=== PATIENT | male | born 1965 | race Caucasian/White ===

== ENCOUNTER 2020-08-02 21:58 | Emergency (ER) | payer OTHER, SELFPAY ==
[2020-08-02 22:13] VITALS: BP 126/76; PULSE 78; RESP 16; TEMP 36.1; O2SAT 97; BMI 22.1
[2020-08-02 22:27] LABS: Glucose, Whole Blood 240 mg/dL (60-115)
--- NOTE | 2020-08-02 22:31 | ED_ITS ---
HPI - Abdominal Pain General Chief Complaint: Abdominal Pain Stated Complaint: flank pain Time Seen by Provider: 08/02/20 22:22 Source: patient Mode of arrival: EMS History of Present Illness HPI narrative: This is a 54-year-old male without significant past medical history he states that he is currently passing and developed acute right-sided flank pain, squeezing in nature, radiating into the right groin without fever, chills but reports nausea and 3 episodes of nonbloody/nonbilious vomiting. Otherwise, denies any shortness of breath, chest pain, diarrhea, and no surgical history. Patient states that he received medication in the ambulance and says pain is now 4-5/10. Related Data Previous Rx's Medication Instructions Recorded ketorolac 10 mg PO TID PRN 5 Days #20 tab 08/03/20 ondansetron HCl [Zofran] 4 mg PO Q6H PRN #7 tab 08/03/20 tamsulosin [Flomax] 0.4 mg PO BEDTIME 5 Days #5 cap 08/03/20 Allergies Allergy/AdvReac Type Severity Reaction Status Date / Time No Known Allergies Allergy Verified 08/02/20 22:39 Review of Systems Review of Systems Pertinent positives and negatives as stated in HPI 10 point review of systems is otherwise negative. Physical Exam Vital Signs: Vital Signs: Last Vital Signs Temp 98.7 F 08/02/20 23:46 Pulse 81 08/02/20 23:46 Resp 16 08/02/20 23:46 BP 117/64 08/02/20 23:46 Pulse Ox 97 08/02/20 23:46 Body Mass Index 22.1 VITAL SIGNS: Reviewed. GENERAL: Well developed, well nourished, in no acute distress. OROPHARYNX: no oral lesions noted, posterior pharynx clear NECK: Supple, no adenopathy LUNGS: Normal breath sounds. No adventitious sounds or accessory muscle use. SpO2<97> CARDIOVASCULAR: Regular rate and rhythm without noted murmurs, no JVD or lower extremity edema. ABDOMEN: Soft, non-tender, non-distended with bowel sounds. NEUROLOGIC: Alert and oriented x 4. Course Course Course Narrative: This is a 54-year-old male with history and clinical presentation consistent with likely nephrolithiasis but will rule out a ppendicitis, UTI, pyelonephritis, cholecystitis. Review of all investigations and on re-evaluation findings are consistent with ureteral lithiasis and patient able to tolerate oral intake and will be discharged home in stable condition with instructions on pain control and to follow up with Dr. Isaacs in the morning. In addition, all results and findings to include mildly elevated glucose and patient endorsing no history diabetes. MDM - Abdominal Pain Lab Data Result diagrams: 08/02/20 22:52 08/02/20 22:52 Labs: Lab Results 08/02/20 08/02/20 08/02/20 Range/Units 22:24 22:52 22:52 WBC 9.6 (4.8-10.8) X10*3/uL RBC 4.52 L (4.60-5.80) X10*6/uL Hgb 14.1 (14.0-18.0) g/dl Hct 41.6 L (42-52) % MCV 92.0 (80-98) fL MCH 31.2 (27.0-33.0) pg MCHC 33.9 (31.0-36.0) g/dl RDW 11.3 (11.0-16.0) % Plt Count 151 L (160-400) X10*3/uL MPV 11.1 (9.4-12.4) fL Immature Gran % (Auto) 0.6 H (0.0-0.4) % Neut % (Auto) 86.3 H (45-73) % Lymph % (Auto) 9.6 L (20-40) % Lyon % (Auto) 3.1 (2-11) % Eos % (Auto) 0.2 (0-4) % Baso % (Auto) 0.2 (0-2) % Lymph # (Auto) 0.9 L (1.2-4.9) X10*3/uL Lyon # (Auto) 0.3 (0.1-1.2) X10*3/uL Eos # (Auto) 0.0 (0.0-0.4) X10*3/uL Baso # (Auto) 0.0 (0.0-0.2) X10*3/uL Abs Immat Gran (auto) 0.06 H (0.00-0.03) X10*3/uL Absolute Neuts (auto) 8.2 (2.0-8.3) X10*3/uL Absolute Nucleated RBC 0.000 (0.0-0.012) X10*3/uL Nucleated RBC % (auto) 0.0 (0.0-0.2) /100WBC Sodium 138 (135-145) mmol/L Potassium 4.7 (3.3-5.1) mmol/L Chloride 104 (96-108) mmol/L Carbon Dioxide 20 L (22-29) mmol/L Anion Gap 19 (12-20) BUN 19 H (9-16) mg/dL Creatinine 0.88 (0.5-1.4) mg/dL Estim Creat Clear Calc 94.4 Estimated GFR > 60 POC Glucose 240 H (60-115) mg/dL Random Glucose 286 H (60-115) mg/dL Calcium 8.6 (8.4-10.2) mg/dL Total Bilirubin 0.7 (0.0-1.0) mg/dL AST 28 (5-37) U/L ALT 44 H (0-40) U/L Alkaline Phosphatase 59 (39-117) U/L Total Protein 6.7 (6.5-8.0) g/dL Albumin 4.2 (3.5-5.0) g/dL Discharge Plan Discharge Clinical Impression: Ureterolithiasis, Blood glucose elevated Patient Disposition: Home, Self-Care Instructions: Ureteral Stones (ED), Diabetes and Nutrition (ED) Additional Instructions: KIDNEY STONE 1. Tylenol 1000 mg, orally, every 6 hours as needed for pain control. Do not exceed 4000 mg within 24 hours. 2. Increase fluid hydration especially with water. 3. Please call the urology office in the morning, the referral information is below, and you will be further evaluated for stone removal if necessary. ELEVATED SUGAR LEVEL You were noted to have an elevated sugar level that will need to be further investigated by your primary care provider. There are no other concerning symptoms at this time. Take prescribed medication as directed. You have been provided with the prescriptions. Please do not hesitate to return to the emergency department if you experience any worsening symptoms to include fever/chills that do not resolve with [id number] Tylenol or ibuprofen. Prescriptions: New tamsulosin [Flomax] 0.4 mg capsule 0.4 mg PO BEDTIME 5 Days Qty: 5 RF: 0 ondansetron HCl [Zofran] 4 mg tablet 4 mg PO Q6H PRN (Reason: nausea and vomiting) Qty: 7 RF: 0 ketorolac 10 mg tablet 10 mg PO TID PRN (Reason: pain) 5 Days Qty: 20 RF: 0 Referrals: Chi Gregg MD [Physician] - 1 day (Evaluation and management right 4mm stone) [facility] Past Medical History Source: nursing notes reviewed Medical History No known health problems Social History Social History Alcohol intake: never Smoked in Last 30 Days: No Use of substances other than those prescribed or required for medical reasons: No Advance Directives: No
[2020-08-02] MEDS: ondansetron HCL 4 MG/2 ML VIAL IVPUSH (22:50)
[2020-08-02] MEDS: 0.9 % Sodium Chloride 1,000 ML 999 ML IV (22:50)
[2020-08-02 22:57] LABS: Basophils Percent Auto 0.2 % (0-2); Eosinophils Percent Auto 0.2 % (0-4); Hematocrit 41.6 % (42-52); Hemoglobin 14.1 g/dl (14.0-18.0); Imm Gran Abs Auto 0.06 X10*3/uL (0.00-0.03); Imm Gran Pct Auto 0.6 % (0.0-0.4); Lymphocytes Absolute Auto 0.9 X10*3/uL (1.2-4.9); Lymphocytes Percent Auto 9.6 % (20-40); MANUAL DIFF FLAG NO; Mean Corpuscular HGB Conc 33.9 g/dl (31.0-36.0); Mean Corpuscular Hemoglobin 31.2 pg (27.0-33.0); Mean Platelet Volume 11.1 fL (9.4-12.4); Monocytes Absolute Auto 0.3 X10*3/uL (0.1-1.2); Monocytes Percent Auto 3.1 % (2-11); Neutrophils Absolute Auto 8.2 X10*3/uL (2.0-8.3); Neutrophils Percent Auto 86.3 % (45-73); Platelet Count 151 X10*3/uL (160-400); Red Blood Count 4.52 X10*6/uL (4.60-5.80); Red Cell Distribution Width 11.3 % (11.0-16.0); White Blood Count 9.6 X10*3/uL (4.8-10.8)
[2020-08-02 23:29] LABS: Alanine Aminotransferase 44 U/L (0-40); Albumin Level 4.2 g/dL (3.5-5.0); Alkaline Phosphatase 59 U/L (39-117); Anion Gap 19 (12-20); Aspartate Amino Transferase 28 U/L (5-37); Bilirubin Total 0.7 mg/dL (0.0-1.0); Blood Urea Nitrogen 19 mg/dL (9-16); Calcium 8.6 mg/dL (8.4-10.2); Carbon Dioxide 20 mmol/L (22-29); Chloride 104 mmol/L (96-108); Creatinine Clr Calc Pharmacy 94.4; Estimated Glomerular Filt Rate > 60; Glucose Random 286 mg/dL (60-115); Potassium 4.7 mmol/L (3.3-5.1); Sodium 138 mmol/L (135-145); Total Protein 6.7 g/dL (6.5-8.0)
[2020-08-02 23:46] VITALS: BP 117/64; PULSE 81; RESP 16; TEMP 37.1; O2SAT 97
--- NOTE | 2020-08-03 | CT_ITS ---
EXAMINATION: CT ABDOMEN AND PELVIS WITH CONTRAST CLINICAL INFORMATION: Right flank pain. COMPARISON: None. TECHNIQUE: Contiguous axial thin section helical images of the abdomen and pelvis were performed following the administration of 85 mL of intravenous Omnipaque 350. The data set was reformatted in the coronal and sagittal planes and reviewed on an independent workstation. DLP: 517 mGy-cm. FINDINGS: There is mild dependent bibasilar atelectasis. The visualized lung bases are otherwise clear. The visualized portions of the heart are unremarkable. The liver is of normal size and attenuation without focal lesions nor intrahepatic biliary ductal dilation. A normal gallbladder is identified. There is no wall thickening or discernible pericholecystic fluid. The spleen, pancreas, adrenal glands are unremarkable. Both kidneys are of normal size and attenuation. Following the administration of IV contrast, there is a slightly delayed nephrogram on the right. There is a duplicated collecting system on the right. There is right grade 2 moiety hydroureteronephrosis secondary to a 4 mm obstructive proximal to mid right ureteral calculus. There is mild right perinephric stranding. There is no abdominal free fluid. There is neither mesenteric nor retroperitoneal lymphadenopathy. Normal unopacified loops of small and large bowel are identified. There is no pelvic free fluid. The urinary bladder is unremarkable. There is neither pelvic nor inguinal lymphadenopathy. Bone windows: Neither sclerotic nor lytic bone lesions are identified. CT/CT abdomen pelvis w con IMPRESSION: Right grade 2 hydroureteronephrosis secondary to a 4 mm obstructive right proximal to mid ureteral calculus. Automated exposure control (Care Dose) Adjustment of the mA and/or kv according to patient size (this includes techniques or standardized protocols for targeted exams where dose is matched to indication / reason for exam; i.e. extremities or head).
[2020-08-03] MEDS: Ketorolac Tromethamine 15 MG/ML VIAL IVPUSH (00:36)
[2020-08-03] MEDS: iohexoL 350 MG/ML 100 ML INFUS..BTL 85 ML IV (00:36)
--- NOTE | 2020-08-03 00:56 | PC.NURSE ---
REPORT GIVEN TO ROSS CHOE WHO WILL RESUME PT CARE.
[2020-08-03] MEDS: Tamsulosin HCL 0.4 MG CAPSULE PO (01:18)
== END 2020-08-03 03:03 | disposition home or self-care (01) ==
PROVIDERS: Emergency Provider Student in an Organized Health Care Education/Training Program
DX: N13.2 Hydronephrosis with renal and ureteral calculous obstruction (principal); R73.9 Hyperglycemia, unspecified
CPT/HCPCS: 36415; 74177; 80053; 82947; 85025; 96361; 96374; 96375; 99284; J1885; J2405; Q9967

== ENCOUNTER → 2020-08-06 13:03 | Outpatient (BNVA) | payer OTHER, SELFPAY | PROVIDERS: Visit Provider Urology | DX: N13.2 Hydronephrosis with renal and ureteral calculous obstruction (principal) | CPT/HCPCS: 99202 ==

== ENCOUNTER 2020-08-23 15:09 | Outpatient (REF) | payer OTHER, SELFPAY ==
--- NOTE | ~2020-08-23 | US_ITS ---
EXAMINATION: US RETROPERITONEAL LIMITED (RENAL ONLY) CLINICAL INFORMATION: Calculus of kidney. COMPARISON: CT abdomen pelvis 08/03/2020. TECHNIQUE: Real-time imaging of the kidneys. FINDINGS: RIGHT KIDNEY: 12.2 x 5.1 x 6.0 cm (SAG x AP x TRV). The kidney is normal in size, contour, and echogenicity. Renal cortical thickness is normal. No focal parenchymal lesions or hydronephrosis. There is a 3 mm nonobstructing right upper pole calculus. LEFT KIDNEY: 12.0 x 5.6 x 5.4 cm (SAG x AP x TRV). The kidney is normal in size, contour, and echogenicity. Renal cortical thickness is normal. No focal parenchymal lesions or hydronephrosis. 3 mm echogenic foci in the upper and lower pole are consistent with nonobstructing calculi. Mild fullness of the renal collecting system but no calyceal dilation. US/US renal BI IMPRESSION: 3 mm bilateral renal calculi. There is mild fullness of the left renal collecting system that is new from the prior study. The right hydronephrosis seen on the prior CT scan has resolved.
== END 2020-08-23 15:10 | disposition home or self-care (01) ==
LOC: HO.HMGCX 15:09
PROVIDERS: Visit Provider Urology
DX: N20.0 Calculus of kidney (principal)
CPT/HCPCS: 76775

== ENCOUNTER → 2020-08-25 15:20 | Outpatient (BNVA) | payer OTHER, SELFPAY | PROVIDERS: Visit Provider Urology | DX: N13.2 Hydronephrosis with renal and ureteral calculous obstruction (principal) | CPT/HCPCS: 99212 ==

== ENCOUNTER → 2020-10-14 15:51 | Outpatient (BNVA) | payer OTHER, SELFPAY | PROVIDERS: Visit Provider Urology | DX: N20.0 Calculus of kidney (principal); N40.1 Benign prostatic hyperplasia with lower urinary tract symptoms; N13.8 Other obstructive and reflux uropathy; R35.1 Nocturia | CPT/HCPCS: 99212 ==

== ENCOUNTER 2021-04-20 15:41 | Outpatient (REF) | payer OTHER, SELFPAY ==
--- NOTE | ~2021-04-20 | XR_ITS ---
EXAMINATION: XR TEMPOROMANDIBULAR JOINT, BILATERAL CLINICAL INFORMATION: TMJ syndrome COMPARISON: None TECHNIQUE: Gabriel's view as well as open and closed mouth views bilaterally of the temporomandibular joints. FINDINGS: No fracture. Appropriate alignment of the temporomandibular joints with normal positioning of the mandibular heads in the temporal fossa. There is no significant change in positioning of the mandibular heads between the open and closed mouth views. XR/XR TMJ BI IMPRESSION: No significant change in positioning of the mandibular heads on the open and closed mouth views.
== END 2021-04-20 15:42 | disposition home or self-care (01) ==
LOC: HO.XRAY 15:41
PROVIDERS: Visit Provider Psychiatry & Neurology Neurology
DX: M26.69 Other specified disorders of temporomandibular joint (principal)
CPT/HCPCS: 70330

== ENCOUNTER → 2021-07-05 15:26 | Outpatient (BNVA) | payer OTHER, SELFPAY | PROVIDERS: Visit Provider Urology | DX: N40.1 Benign prostatic hyperplasia with lower urinary tract symptoms (principal); N13.8 Other obstructive and reflux uropathy; N20.0 Calculus of kidney | CPT/HCPCS: 99212 ==

== ENCOUNTER 2022-06-23 15:45 | Outpatient (REF) | payer OTHER, SELFPAY ==
--- NOTE | ~2022-06-23 | US_ITS ---
EXAMINATION: US RETROPERITONEAL LIMITED (RENAL ONLY) CLINICAL INFORMATION: Calculus of kidney. COMPARISON: Renal ultrasound 08/23/2020. CT abdomen and pelvis 08/03/2020. TECHNIQUE: Real-time imaging of the kidneys. FINDINGS: RIGHT KIDNEY: 11.9 x 6.9 x 4.7 cm (SAG x AP x TRV). The kidney is normal in size, contour, and echogenicity. Renal cortical thickness is normal. Punctate 3 mm echogenic nonobstructing calculus is present. No focal parenchymal lesions or hydronephrosis. LEFT KIDNEY: 11.4 x 5.8 x 4.8 cm (SAG x AP x TRV). The kidney is normal in size, contour, and echogenicity. Renal cortical thickness is normal. Punctate 2 mm nonobstructing calculus is present. No focal parenchymal lesions or hydronephrosis. US/US renal BI IMPRESSION: Bilateral punctate nonobstructing renal calculi. Similar findings were present on prior studies.
== END 2022-06-23 15:46 | disposition home or self-care (01) ==
LOC: HO.HMGCX 15:45
PROVIDERS: PCP Internal Medicine; Visit Provider Urology
DX: N20.0 Calculus of kidney (principal)
CPT/HCPCS: 76775

== ENCOUNTER → 2022-07-04 15:47 | Outpatient (BNVA) | payer OTHER, SELFPAY | PROVIDERS: PCP Internal Medicine; Visit Provider Urology | DX: N13.2 Hydronephrosis with renal and ureteral calculous obstruction (principal); R35.1 Nocturia; N40.1 Benign prostatic hyperplasia with lower urinary tract symptoms; N13.8 Other obstructive and reflux uropathy; Z79.899 Other long term (current) drug therapy | CPT/HCPCS: 99212 ==

== ENCOUNTER 2023-06-20 14:56 | Outpatient (REF) | payer OTHER, SELFPAY ==
--- NOTE | ~2023-06-20 | US_ITS ---
EXAMINATION: US RETROPERITONEAL LIMITED (RENAL ONLY) CLINICAL INFORMATION: Hydronephrosis with renal and ureteral calculus obstruction. COMPARISON: Renal ultrasound 06/23/2022 and 08/23/2020. CT abdomen and pelvis with contrast 08/03/2020. TECHNIQUE: Real-time imaging of the kidneys. FINDINGS: RIGHT KIDNEY: 12.4 x 4.7 x 6.1 cm (SAG x AP x TRV). The kidney is normal in size, contour, and echogenicity. Renal cortical thickness is normal. No focal parenchymal lesions or hydronephrosis. 0.2 x 0.3 x 0.3 cm nonobstructing calculus is seen in the upper pole LEFT KIDNEY: 12.0 x 6.2 x 6.0 cm (SAG x AP x TRV). The kidney is normal in size, contour, and echogenicity. Renal cortical thickness is normal. No focal parenchymal lesions. There is mild hydronephrosis. 0.3 x 0.3 x 0.3 cm and 0.3 x 0.2 x 0.3 cm lower pole nonobstructing calculi are seen. US/US renal BI IMPRESSION: 1. Bilateral small nonobstructing renal calculi. 2. Mild left hydronephrosis.
== END 2023-06-20 14:57 | disposition home or self-care (01) ==
LOC: HO.HMGCX 14:56
PROVIDERS: PCP Internal Medicine; Visit Provider Urology
DX: N13.2 Hydronephrosis with renal and ureteral calculous obstruction (principal)
CPT/HCPCS: 76775

== ENCOUNTER 2023-07-04 15:30 | Outpatient (AMB) | payer OTHER, SELFPAY ==
--- NOTE | 2023-07-04 15:42 | MHC.OFFVIS ---
Intake Intake Visit Reasons: 1Y US(set) Intake Note: Patient is Present for Follow Up US Urology Medication:Vitamin B6 Antibiotic Allergies: None Blood Thinners: None Allergies No Known Allergies Allergy (Verified 07/04/23 15:49) Medication List - Last Reconciled 07/04/23 by Chi Gregg MD ketorolac 10 mg PO TID PRN 5 days pyridoxine (vitamin B6) 50 mg PO DAILY 90 days HPI HPI Comments History of Present Illness Details Bryan this very pleasant male. He is a patient of Dr. Hughes. He is seen for the following urologic conditions - lower urinary tract symptoms - nephrolithiasis Discussed ultrasound results Punctate stones Encourage increased fluid intake - he drinks too much coffee - 2.5 L Keep on vitamin B6 50 mg Stat allopurinol Lower urinary tract symptoms Prior symptoms with nocturia Had improvement with Flomax Had decided not to maintain therapy Nephrolithiasis They are here for - further evaluation for nephrolithiasis Urolithiasis was diagnosed -2020 The patient previously had kidney stones whose composition w - unknown Laboratory investigations include -08/22 calcium 8.6 24 Hour urine evaluation - none on file Prior treatment(s) include - observation - medical expulsion Prior imaging includes - 08/22 CT scan 4 mm proximal right ureteric stone with grade 2 hydronephrosis - 08/22 ultrasound with resolution of right grade 2 hydronephrosis - 06/22 renal ultrasound bilateral punctate stones - 06/23 renal ultrasound bilateral small stones 2 mm Current therapeutic plan will be - 12 month surveillance with imaging [facility] Medical History (Updated 07/04/22 @ 16:13 by Chi Gregg MD) Ureteral stone with hydronephrosis No known health problems Social History Alcohol intake: never Review of Systems Const Denies chills and Denies fever(s) Card Reports no additional complaints and Denies syncope Resp Denies cough GI Denies abdominal pain and Denies heartburn Reports as per HPI and Denies change in libido Neuro Denies syncope Psych Denies change in libido Endo Denies change in libido Physical Exam Const General: cooperative, healthy appearing, comfortable and no acute distress Orientation/consciousness: patient oriented x3 HEENT Face and sinus: Yes normal facial exam Mouth: moist mucous membranes Neck Neck: Yes normal visual inspection, Yes full ROM and Yes trachea midline Chest Chest palpation & inspection: normal inspection of the chest Resp Effort & Inspection: normal respiratory effort, able to speak in complete sentences and no respiratory distress GI Inspection: Yes normal to inspection Back/Spine/Pelvis Cervical Spine: normal cervical lordosis Thoracic/Lumbar Spine: thoracic and lumbar spine normal to inspection Skin General skin exam: no rashes or lesions noted Neuro General: patient oriented x3, gait normal, tone normal and moves all extremities Extrem General: Yes normal to inspection and Yes capillary refill normal Assessment & Plan Assessment & Plan (1) BPH w urinary obs/LUTS: Code(s): N40.1 - Benign prostatic hyperplasia with lower urinary tract symptoms; N13.8 - Other obstructive and reflux uropathy (2) Nephrolithiasis: Code(s): N20.0 - Calculus of kidney Plan And allopurinol Six month follow-up imaging Orders: Orders US renal BI 6 Months N20.0 - Calculus of kidney Medications: New allopurinol 100 mg PO DAILY 90 days 90 tabs 1RF N20.0 - Calculus of kidney Patient Instructions: Imaging studies, laboratory and physical exam results were discussed and reviewed in detail. No major barriers to patient understanding were identified. An opportunity to ask questions regarding the treatment plan was provided. All questions were answered. The patient expressed understanding and agreement with the above treatment plan. The patient is aware they should contact our office by phone for worsening of their current condition or the appearance of new urologic symptoms. Compliance is encouraged with any medications and followup testing that is ordered. It is a privilege to participate in the urologic care of your patient. If you have any questions or concerns regarding treatment for the above conditions, or other urologic issues, please do not hesitate to contact me. The office telephone contact is [phone]. This note is constructed using voice recognition software. While every effort has been made to ensure accuracy butt presser errors may have been included. Yours sincerely, Dr Chi Gregg MD, [facility] - Urology Providers of Expert, Compassionate Care for the Genitourinary System Coding Level of Care Code Est Pt Level 4 (29194) Diagnoses BPH w urinary obs/LUTS N40.1; N13.8 Nephrolithiasis N20.0
== END 2023-07-04 16:29 | disposition home or self-care (01) ==
PROVIDERS: Visit Provider Urology
DX: N40.1 Benign prostatic hyperplasia with lower urinary tract symptoms (principal); N13.8 Other obstructive and reflux uropathy; N20.0 Calculus of kidney
CPT/HCPCS: 99214

== ENCOUNTER → 2023-07-04 15:30 | Outpatient (BNVA) | payer OTHER, SELFPAY | PROVIDERS: Visit Provider Urology | DX: N40.1 Benign prostatic hyperplasia with lower urinary tract symptoms (principal); N13.8 Other obstructive and reflux uropathy; N20.0 Calculus of kidney | CPT/HCPCS: 99212 ==

== ENCOUNTER 2024-01-18 15:25 | Outpatient (REF) | payer OTHER, SELFPAY ==
--- NOTE | ~2024-01-18 | US_ITS ---
EXAMINATION: US RETROPERITONEAL LIMITED (RENAL ONLY) CLINICAL INFORMATION: Calculus of kidney. COMPARISON: Renal ultrasound 06/20/2023 and 06/23/2022. CT abdomen and pelvis 08/03/2020. TECHNIQUE: Real-time imaging of the kidneys. FINDINGS: RIGHT KIDNEY: 12.4 x 4.5 x 6.2 cm (SAG x AP x TRV). The kidney is normal in size, contour, and echogenicity. Renal cortical thickness is normal. No calculi or focal parenchymal lesions. No hydronephrosis. LEFT KIDNEY: 11.5 x 5.5 x 6.1 cm (SAG x AP x TRV). The kidney is normal in size, contour, and echogenicity. Renal cortical thickness is normal. 3 lower pole nonobstructing calculi are present ranging in size from 3 to 4 mm, similar to prior. No focal parenchymal lesions or hydronephrosis. Mild left-sided hydronephrosis seen previously is not present on the current study. ADDITIONAL FINDINGS: Incidental note made of an echogenic liver consistent with hepatic steatosis. US/US renal BI IMPRESSION: 1. Nonobstructing left lower pole renal calculi. 2. Incidentally noted hepatic steatosis.
== END 2024-01-18 15:26 | disposition home or self-care (01) ==
LOC: HO.HMGCX 15:25
PROVIDERS: PCP Internal Medicine; Visit Provider Urology
DX: N20.0 Calculus of kidney (principal)
CPT/HCPCS: 76775

== ENCOUNTER 2024-03-07 15:29 | Outpatient (AMB) | payer OTHER, SELFPAY ==
--- NOTE | 2024-03-07 15:56 | A.OFFVIS_ITS ---
Intake Visit Reasons: Follow up/U/S Intake Note: Patient is Present for Follow Up Ultrasound Urology Medication: Vitamin B6 Antibiotic Allergies: None Blood Thinners: None Remote Computer Terminal Operator Required: No Accompanied by: Self / Same As Patient Allergies No Known Allergies Allergy (Verified 07/04/23 15:49) HPI Comments Details: Bryan this very pleasant male. He is a patient of Dr. Hughes. He is seen for the following urologic conditions - lower urinary tract symptoms - nephrolithiasis Six-month follow-up on vitamin B6 and allopurinol Imaging reviewed Yearly follow-up Lower urinary tract symptoms Prior symptoms with nocturia Had improvement with Flomax Had decided not to maintain therapy Nephrolithiasis They are here for - further evaluation for nephrolithiasis Urolithiasis was diagnosed -2020 The patient previously had kidney stones whose composition w - unknown Laboratory investigations include -08/22 calcium 8.6 24 Hour urine evaluation - none on file Prior treatment(s) include - observation - medical expulsion Prior imaging includes - 08/22 CT scan 4 mm proximal right ureteric stone with grade 2 hydronephrosis - 08/22 ultrasound with resolution of right grade 2 hydronephrosis - 06/22 renal ultrasound bilateral punctate stones - 06/23 renal ultrasound bilateral small stones 2 mm - 01/22 renal ultrasound small stone left side Current therapeutic plan will be - 12 month surveillance with imaging [facility] Medical History Ureteral stone with hydronephrosis No known health problems Social History Alcohol intake: never Review of Systems Const Denies chills and Denies fever(s) Card Reports no additional complaints and Denies syncope Resp Denies cough GI Denies abdominal pain and Denies heartburn Reports as per HPI and Denies change in libido Neuro Denies syncope Psych Denies change in libido Endo Denies change in libido Physical Exam Const General: cooperative, healthy appearing, comfortable and no acute distress Orientation/consciousness: patient oriented x3 HEENT Face and sinus: Yes normal facial exam Mouth: moist mucous membranes Neck Neck: Yes normal visual inspection, Yes full ROM and Yes trachea midline Chest Chest palpation & inspection: normal inspection of the chest Resp Effort & Inspection: normal respiratory effort, able to speak in complete sentences and no respiratory distress GI Inspection: Yes normal to inspection Back/Spine/Pelvis Cervical Spine: normal cervical lordosis Thoracic/Lumbar Spine: thoracic and lumbar spine normal to inspection Skin General skin exam: no rashes or lesions noted Neuro General: patient oriented x3, gait normal, tone normal and moves all extremities Extrem General: Yes normal to inspection and Yes capillary refill normal Assessment & Plan Assessment & Plan (1) Nephrolithiasis: Code(s): N20.0 - Calculus of kidney Category: Medical Plan Twelve month follow-up curvature Orders: Orders US renal BI 12 Months N40.1 - Benign prostatic hyperplasia with lower urinary tract symptoms, N13.8 - Other obstructive and reflux uropathy Patient Instructions: \Imaging studies, laboratory and physical exam results were discussed and reviewed in detail. No major barriers to patient understanding were identified. An opportunity to ask questions regarding the treatment plan was provided. All q uestions were answered. The patient expressed understanding and agreement with the above treatment plan. The patient is aware they should contact our office by phone for worsening of their current condition or the appearance of new urologic symptoms. Compliance is encouraged with any medications and followup testing that is ordered. It is a privilege to participate in the urologic care of your patient. If you have any questions or concerns regarding treatment for the above conditions, or other urologic issues, please do not hesitate to contact me. The office telephone contact is [phone]. This note is constructed using voice recognition software. While every effort has been made to ensure accuracy high wire artist errors may have been included. Yours sincerely, Dr Chi Gregg MD, [facility] - Urology Providers of Expert, Compassionate Care for the Genitourinary System Coding Level of Care Code Est Pt Level 3 (90898) Diagnoses Nephrolithiasis N20.0
== END 2024-03-07 16:17 | disposition home or self-care (01) ==
PROVIDERS: PCP Internal Medicine; Visit Provider Urology
DX: N20.0 Calculus of kidney (principal)
CPT/HCPCS: 99213

== ENCOUNTER → 2024-03-07 15:29 | Outpatient (BNVA) | payer OTHER, SELFPAY | PROVIDERS: PCP Internal Medicine; Visit Provider Urology | DX: N20.0 Calculus of kidney (principal) | CPT/HCPCS: 99212 ==

== ENCOUNTER 2025-04-15 11:24 | Outpatient (REF) | payer OTHER, SELFPAY ==
--- NOTE | ~2025-04-15 | US_ITS ---
CLINICAL HISTORY: N40.1 - Benign prostatic hyperplasia with lower urinary tract symptoms US renal with Color Doppler Comparison: US/SR - US KIDNEY BILATERAL - 01/18/24 15:32 EDT US/[place]/SR - US KIDNEY BILATERAL - 06/20/23 15:36 EST US/SR - US KIDNEY BILATERAL - 06/23/22 15:53 EST Findings: Right kidney normal size and echotexture, 12.1 cm length. No nephrolithiasis. No hydronephrosis. Normal color flow. Renal cortical cyst upper pole with internal echoes measuring 1.5 x 1.4 x 1.6 cm Left kidney normal size and echotexture, 11.3 cm length. No hydronephrosis or mass. Normal color flow. Nonobstructing caliceal stone lower pole measuring 5 x 2 x 2 mm previously measuring 4 x 3 x 3 mm. Impression: 1. Kidneys normal-size and position with normal cortical width and echotexture. Renal cortical cyst upper pole on the right with internal echoes not demonstrated on previous studies can be correlated with contrast-enhanced CT or MRI. Nephrolithiasis on the left. No evidence of obstructive uropathy. This document has been electronically signed by: Gregorio Padgett MD on 04/16/2025 15:31:06
== END 2025-04-15 11:25 | disposition home or self-care (01) ==
LOC: HO.HMGCX 11:24
PROVIDERS: PCP Internal Medicine; Visit Provider Urology
DX: N40.1 Benign prostatic hyperplasia with lower urinary tract symptoms (principal); N13.8 Other obstructive and reflux uropathy
CPT/HCPCS: 76775

== ENCOUNTER → 2025-04-15 11:28 | Outpatient (BNV) | payer OTHER, SELFPAY | PROVIDERS: PCP Internal Medicine; Visit Provider Radiology Diagnostic Radiology | DX: N20.0 Calculus of kidney (principal) | CPT/HCPCS: 76775 ==

== ENCOUNTER 2025-05-01 14:57 | Outpatient (AMB) | payer OTHER, SELFPAY ==
--- NOTE | 2025-05-01 15:20 | A.OFFVIS_ITS ---
Intake Visit Reasons: 1y/US Intake Note: Patient is present for Ultrasound follow up Urology Med: Allopurinol, Vitamin B6 Antibiotic Allergy: None Blood Thinners: None Accompanied by: Self / Same As Patient Allergies No Known Allergies Allergy (Verified 05/01/25 15:22) HPI Comments Details: Bryan this very pleasant male. He is a patient of Dr. Hughes. He is seen for the following urologic conditions - lower urinary tract symptoms - nephrolithiasis Twelve month follow-up Did have pain on left side about a month ago Ultrasound consistent with small stone left side 5 mm He is interested in ESWL We will schedule Lower urinary tract symptoms Prior symptoms with nocturia Had improvement with Flomax Had decided not to maintain therapy Nephrolithiasis They are here for - further evaluation for nephrolithiasis Urolithiasis was diagnosed -2020 The patient previously had kidney stones whose composition w - unknown Laboratory investigations include -08/22 calcium 8.6 24 Hour urine evaluation - none on file Prior treatment(s) include - observation - medical expulsion Prior imaging includes - 08/22 CT scan 4 mm proximal right ureteric stone with grade 2 hydronephrosis - 08/22 ultrasound with resolution of right grade 2 hydronephrosis - 06/22 renal ultrasound bilateral punctate stones - 06/23 renal ultrasound bilateral small stones 2 mm - 01/22 renal ultrasound small stone left side - 04/25 small stone left side Current therapeutic plan will be - 12 month surveillance with imaging [facility] Medical History Ureteral stone with hydronephrosis No known health problems Social History Alcohol intake: never Review of Systems Const Denies chills and Denies fever(s) Card Reports no additional complaints and Denies syncope Resp Denies cough GI Denies abdominal pain and Denies heartburn Reports as per HPI and Denies change in libido Neuro Denies syncope Psych Denies change in libido Endo Denies change in libido Physical Exam Const General: cooperative, healthy appearing, comfortable and no acute distress Orientation/consciousness: patient oriented x3 HEENT Face and sinus: Yes normal facial exam Mouth: moist mucous membranes Neck Neck: Yes normal visual inspection, Yes full ROM and Yes trachea midline Chest Chest palpation & inspection: normal inspection of the chest Resp Effort & Inspection: normal respiratory effort, able to speak in complete sentences and no respiratory distress GI Inspection: Yes normal to inspection Back/Spine/Pelvis Cervical Spine: normal cervical lordosis Thoracic/Lumbar Spine: thoracic and lumbar spine normal to inspection Skin General skin exam: no rashes or lesions noted Neuro General: patient oriented x3, gait normal, tone normal and moves all extremities Extrem General: Yes normal to inspection and Yes capillary refill normal Assessment & Plan Assessment & Plan (1) Nephrolithiasis: Code(s): N20.0 - Calculus of kidney Category: Medical (2) BPH w urinary obs/LUTS: Code(s): N40.1 - Benign prostatic hyperplasia with lower urinary tract symptoms; N13.8 - Other obstructive and reflux uropathy Category: Medical Plan Extracorporeal Shock Wave Lithotripsy We discussed the nature of the decision and reasonable alternatives for performing the above surgery. Interventions include chemical dissolution, ESWL, ureteroscopy with laser lithotripsy and stent placement, PCNL. Options such as medical therapy were discussed. The relative uncertainties and benefits related to each alternate procedure were adequately discussed. General surgical risks including, but not limited to, pain, bleeding, infection, myocardial infarction, pulmonary embolus, deep vein thrombosis and cerebrovascular accident which may result in further hospitalization were discussed. Full disclosure of the procedure as well as all major risks, benefits and complications were discussed including but not limited to risks of bleeding, injury to the kidney with hematoma or radha-hematoma, failure to fragments stone, potential for ureteric obstruction from stone passage and need for secondary procedures. There is a small long-term risk of hypertension and a question cammie of diabetes. Success rate of fragmentation and passage is approximately 70- 75%. This is compared to the risks and benefits for ureteroscopy which has a higher success rate but is a more invasive procedure. The success rate of the procedure was discussed. Success of the procedure in the short-term does not necessarily guarantee that long-term success will be maintained. Suitable follow up will need to be maintained. The patient showed understanding of the discussion as well as the typical recovery time, and the outpatient nature of this procedure. Opportunity was given for questions. Repeat-back protocol used to confirm understanding. They wish to proceed with left ESWL Patient Instructions: This note is constructed using voice recognition software. While every effort has been made to ensure accuracy floral associate errors may have been included. Imaging studies, laboratory and physical exam results were discussed and reviewed in detail. No major barriers to patient understanding were identified. An opportunity to ask questions regarding the treatment plan was provided. All questions were answered. The patient expressed understanding and agreement with the above treatment plan. The patient is aware they should contact our office by phone for worsening of their current condition or the appearance of new urologic symptoms. Compliance is encouraged with any medications and followup testing that is ordered. It is a privilege to participate in the urologic care of your patient. If you have any questions or concerns regarding treatment for the above conditions, or other urologic issues, please do not hesitate to contact me. The office telephone contact is [phone]. Sincerely, Dr Chi Gregg MD, [facility] - Urology Compassionate Specialist Care for the Genitourinary System Coding Level of Care Code Est Pt Level 4 (18402) Diagnoses Nephrolithiasis N20.0 BPH w urinary obs/LUTS N40.1; N13.8
--- OUTSIDE RECORDS SUMMARY | 2025-05-01 15:21 | XMS_ITS | Clinical Summary ---
Author Organization [facility] [address] [place] [address] [place] [phone] Phone Care Team Providers Care Creative Technologist Name Role Phone Omkar Curtis MD Primary Care Provider Allergies No known active allergies Medications pyridoxine (B-6) 50 mg tablet Take 1 tablet (50 mg total) by mouth 1 (one) time each day. 3 Active FREESTYLE LANCETS MISC Use once daily to check blood sugar 3 Active blood-glucose meter kit 1 Device by Not Applicable route. 3 Active FreeStyle Lancets 28 gauge lancets USE ONCE DAILY TO CHECK BLOOD SUGAR 100 each 1 5 Active sodium chloride (OCEAN) 0.65 % nasal spray Administer 1 spray into each nostril if needed for congestion. 15 mL 3 5 09/27/19 26 Active diclofenac (VOLTAREN) 1 % topical gel Apply 2 g topically 2 (two) times a day. 60 g 1 5 Active blood sugar diagnostic (FreeStyle Lite Strips) test strip USE TO CHECK BLOOD SUGAR ONCE DAILY BEFORE BREAKFAST 100 strip 1 5 Active sildenafiL (VIAGRA) 50 mg tablet TAKE 1 TABLET (50 MG TOTAL) BY MOUTH IF NEEDED FOR ERECTILE DYSFUNCTION. 30 tablet 3 5 Active fluticasone propionate (FLONASE) 50 mcg/actuation nasal spray SPRAY 2 SPRAYS INTO EACH NOSTRIL EVERY DAY SHAKE GENTLY. CLEAN TIP AND REPLACE CAP AFTER USE. 48 mL 5 Active cholecalciferol (VITAMIN D-3) 50 mcg (2,000 unit) tablet TAKE 1 TABLET BY MOUTH EVERY DAY 90 tablet 3 5 Active metFORMIN (GLUCOPHAGE) 500 mg tablet Take 1 tablet (500 mg total) by mouth 1 (one) time each day with breakfast. 90 tablet 1 5 Active Active Problems Problem Noted Date Diagnosed Date Erectile dysfunction 01/06/2025 Incidental finding of low blood pressure 024 Spasm of eye muscle, right 09/05/2023 Bilateral hearing loss 12/05/2022 Memory loss 12/05/2022 Controlled type 2 diabetes m panda without complication, without long-term current use of insulin ([facility] V24, [facility] V28) 08/17/2021 Assessment & Plan (07/22/2024 5:02 PM EST): Patient is to continue metformin 500 mg daily. We do long discussion about the importance of taking medication as prescribed. We also discussed not stopping his medication and only his provider should discontinue. I also discussed sick day management with the patient. Which could explain the increase in his blood sugars. Please maintain a low carb diet to optimize blood sugar levels (avoid sweet drinks/snacks, excess bread, pasta intake and replace red meat with chicken and fish and increase salad intake). Attempt exercise daily or at least 3 times a week for 30 min. Complications associated with uncontrolled diabetes includes, but are not limited to an increased risk of cardiovascular disease, retinopathy, neuropathy, renal disease, increased risk of infections with open wounds and amputations. Orders: POC glucose manually resulted Hyperlipidemia 05/22/2012 Low back pain 05/22/2012 Overview (04/13/2024): Dr. Putnam - 03/14/10 - left L4-5 microlumbar discectomy Encounters Date Type Department Care Team Description 04/22/2025 Telephone Adult Medicine [address] [id number] Gaby Richmond MA from Last 3 Months Immunizations Immunization Administration Dates Next Due Influenza trivalent, 0.5mL, preservative free (Fluarix; FluLaval; Fluzone) ages 6mo and older (Afluria) 3 years and older 06/30/2014 Influenza trivalent, with pr eservative (Fluzone; Afluria) 6mo and older 03/02/2012 Tdap Tetanus diptheria acell ular pertussis (Boostrix; Adacel) 7yo and older 05/22/2012 Surgical History Surgery Date Site/Laterality Comments OTHER SURGICAL HISTORY 03/11 PROCEDURE: ---- OTHER ----; COMMENT: Dr. Putnam, L4-5 surgery OTHER SURGICAL HISTORY PROCEDURE: ---- OTHER ----; COMMENT: Nose surgery COLONOSCOPY 01/23/2018 PROCEDURE: HISTORICAL COLONOSCOPY; COMMENT: normal Medical History Medical History Date Comments Hyperlipidemia 05/22/2012 DX:Hyperlipidemi a Low back pain 05/22/2012 DX:Low back pain Prediabetes 07/05/2019 DX:Prediabetes Controlled type 2 diabetes m ellitus without complication, without long-term current use of insulin ([facility] V24, [facility] V28) 08/17/2021 DX:Controlled type 2 diabete s mellitus without complication, without long-term current use of insulin ([facility]) Family History Medical History Relation Name Comments No Known Problems Aunt Diabetes Brother 1 Diabetes Brother 2 Other: Unknown metabolic syndrome Daughter Coronary artery disease Father Diabetes Father Hypertension Father No Known Problems Maternal Grandfather No Known Problems Maternal Grandmother Arthritis Mother Diabetes Mother No Known Problems Other No Known Problems Paternal Grandfather No Known Problems Paternal Grandmother No Known Problems Sister 1 No Known Problems Sister 2 Other: Unknown metabolic syndrome Son No Known Problems Uncle Blindness Neg Hx Cataracts Neg Hx Glaucoma Neg Hx Macular degeneration Neg Hx Strabismus Neg Hx Relation Name Status Comments Aunt Brother 1 Alive DM Brother 2 Alive DM Daughter Alive Starting with s imilar symptoms compared to his son Father HTN, CAD (age e darien 60's) Maternal Grandfather Maternal Grandmother Mother Alive DM, joint probl ems Other Paternal Grandfather Paternal Grandmother Sister 1 Alive Healthy Sister 2 Alive Healthy Son Alive Feeding tube, u nknown condition, doesn't use his legs or hand; congenital Uncle Social History Tobacco Use Types Packs/Day Years Used Date Smoking Tobacco: Never Smokeless Tobacco: Never Tobacco Cessation:Counseling Given: Not Answered Alcohol Use Standard Drinks/Week Comments No 0 (1 standard drink = 0.6 oz pur e alcohol) Housing Instability Answer Date Recorde d Are you worried that in the next 2 months you may not have stable housing? No 12/30/2024 Food Access & Nutrition Answer Date Rec orded Do you have access to a vari ety of food including fruits and vegetables? Yes 12/30/2024 Health Literacy Answer Date Recorded How often do you need to hav e someone help you when you read instructions, pamphlets, or other written material from your doctor or pharmacy? Never 12/30/2024 Caregiver: How often do you need to have someone help you when you read instructions, pamphlets, or other written material from your doctor or pharmacy? Not on file 12/30/2024 Financial Risk Answer Date Recorded How hard is it for you to pa y for the very basics like food, housing, medical care, and air conditioning / heating? Not very hard 12/30/2024 Transportation Answer Date Recorded Has the lack of transportati on kept you from meetings, work, or from getting things needed for daily living? No Has the lack of transportati on kept you from medical appointments or from getting medications? No 12/30/2024 Social Isolation Answer Date Recorded How often do you feel lonely or isolated from th ose around you? Never 12/30/2024 Food Risk Answer Date Recorded Within the past 12 months we worried whether our food would run out before we got money to buy more. Never true 12/30/2024 Within the past 12 months th e food we bought just didn't last and we didn't have money to get more. Never true 12/30/2024 Dependent Care Answer Date Recorded Do you need help finding or paying for care for your loved ones. For example, director child or elderly care for an older adult? No 12/30/2024 Education Answer Date Recorded Do you think completing more education or training, like finishing a GED, going to college, or learning a trade, would be helpful for you? N/A 12/30/2024 Employment and Income Answer Date Recor ded During the last four weeks, have you been actively looking for work? No 12/30/2024 Living Situation Answer Date Recorded What is your living situation? Unrecognized valu e 12/30/2024 Sex and Gender Information Value Date Recorded Sex Assigned at Not on file Legal Sex Male 10:42 AM EST Gender Identity Not on file Sexual Orientation Not on file Obstetrics History Last Filed Vital Signs Vital Sign Reading Time Taken Comments Blood Pressure 106/66 01/06/2025 9:45 AM EDT Pulse 86 01/06/2025 9:45 AM EDT Temperature 36.6 C (97.8 F) 01/06/2025 9:45 AM EDT Respiratory Rate 12 09/26/2024 2:22 PM EDT Oxygen Saturation - - Inhaled Oxygen Concentration - - Weight 71.2 kg (157 lb) 01/06/2025 9:45 AM EDT Height 175.3 cm (5' 9 ) 01/06/2025 9:45 AM EDT Body Mass Index 23.18 01/06/2025 9:45 AM EDT Plan of Treatment Upcoming Encounters Date Type Department Care Team (Late st Contact Info) Description 05/26/2025 10:00 AM EST Office Visit Adult Medicine [facility] [address] [place] [address] Omkar Curtis MD [address] [place] [address] Health Maintenance Due Date Last Done Comments Hepatitis B Vaccines (1 of 3 - 19+ 3-dose series) 1986 Zoster Vaccines (1 of 2) 2017 HIV Screening 06/10/2022 Diabetes: Annual Retina Eye Exam 12/01/2023 11/30/2022 Diabetes: Annual Foot Exam 12/05/2024 12/06/2023 COVID-19 Vaccine ( - season) 2025 09/08/2020, 08/17/2020 Influenza Vaccine (#1) 2025 06/30/2014, 2011 DTaP,Tdap,and Td Vaccines (2 - Td or Tdap) 07/02/2025 05/22/2012 Postponed from 05/22/2022 (Patient Refused) Pneumococcal Vaccine: 50+ Years (1 of 2 - PCV) 07/02/2025 Postponed from 1986 (Patient Refused) Diabetes: Blood Sugar Control Test (HGBA1C) 07/08/2025 01/05/2025, 07/22/2024, 04/11/2024, Additional history exists Social Influencers of Health Screening 12/30/2025 12/30/2024 Diabetes: Annual Urine Albumin-Creatinine Ratio (uACR) 01/05/2026 01/05/2025, 09/07/2023 Diabetes: Annual GFR (Glomerular Filtration Rate) 01/05/2026 01/05/2025 Colorectal Cancer Screening: Colonoscopy 01/24/2028 01/23/2018 Cholesterol Screening (Lipid Panel) 01/05/2030 01/05/2025, 04/11/2024, 12/13/2023 RSV Immunization Adult Patients (1 - 1-dose 75+ series) 2042 Depression Screening Completed 07/22/2024 Hepatitis C Screening Completed 2024 HIB Vaccines Aged Out No longer eligi ble based on patient's age to complete this topic HPV Vaccines Aged Out No longer eligi ble based on patient's age to complete this topic Hepatitis A Vaccines Aged Out No long er eligible based on patient's age to complete this topic IPV Vaccines Aged Out No longer eligi ble based on patient's age to complete this topic MMR Vaccines Aged Out No longer eligi ble based on patient's age to complete this topic Meningococcal ACWY Vaccine Aged Out N o longer eligible based on patient's age to complete this topic Meningococcal B Vaccine Aged Out No l onger eligible based on patient's age to complete this topic RSV Immunization Patients Under 20 months Aged Out No longer eligible based on patient's age to complete this topic Varicella Vaccines Aged Out No longer eligible based on patient's age to complete this topic Procedures Procedure Name Priority Date/Time Associated Diagnosis Comments MICROALBUMIN CREATININE URINE RATIO Routine 01/05/2025 2:36 PM EDT Type 2 diabetes mellitus without complication, without long-term current use of insulin ([facility] V24, [facility] V28) COMPREHENSIVE METABOLIC PANEL Routine 01/05/2025 2:36 PM EDT Type 2 diabetes mellitus without complication, without long-term current use of insulin ([facility] V24, [facility] V28) HEMOGLOBIN A1C Routine 01/05/2025 2:36 PM EDT Type 2 diabetes mellitus without complication, without long-term current use of insulin ([facility] V24, [facility] V28) LIPID PANEL WITH REFLEX TO DIRECT LDL Routine 01/05/2025 2:36 PM EDT Pure hypercholesterolemia from Last 3 Months or Most Recently Relevant to Health Maintenance Results * (ABNORMAL) Lipid panel with reflex to direct LDL (01/05/2025 2:36 PM EDT) Cholesterol 169 0 - 200 mg/dL LAB CHEMISTRY METHOD 01/05/2025 5:07 PM EDT [facility] Triglycerides 68 0 - 150 mg/dL LAB CHEMISTRY METHOD 01/05/2025 5:07 PM EDT [facility] HDL 53 >=40 mg/dL LAB CHEMISTRY METHOD 01/05/2025 5:07 PM EDT [facility] LDL Calculated 102(H) 0 - 100 mg/dL LAB CHEMISTRY METHOD 01/05/2025 5:07 PM EDT [facility] VLDL Cholesterol Tony 13.6 mg/dL LAB CHEMISTRY METHOD 01/05/2025 5:07 PM EDT [facility] Non HDL Chol. (LDL+VLDL) 116 <145 mg/dL LAB CHEMISTRY METHOD 01/05/2025 5:07 PM EDT [facility] Chol/HDL Ratio 3.2 0.0 - 4.4 LAB CHEMISTRY METHOD 01/05/2025 5:07 PM EDT [facility] Blood Venous blood specimen / Unknown Venipuncture / Unknown 01/05/2025 2:36 PM EDT 01/05/2025 2:36 PM EDT us Omkar Curtis MD LAB BLOOD ORDERABLES Final Result [facility] [address] [place] [address], [place] [phone] * Microalbumin creatinine urine ratio (01/05/2025 2:36 PM EDT) [facility] Creatinine, Urine 291.0 mg/dL LAB CHEMISTRY METHOD 01/05/2025 5:36 PM EDT [facility] Microalb, Ur 25.3 0.0 - 29.0 mg/L LAB CHEMISTRY METHOD 01/05/2025 5:36 PM EDT [facility] Microalb/Creat Ratio 9 <30 mg/g creat LAB CHEMISTRY METHOD 01/05/2025 5:36 PM EDT [facility] Urine Urine specimen obtained by clean catch procedure / Unknown Non-blood Collection / Unknown 01/05/2025 2:36 PM EDT 01/05/2025 2:36 PM EDT Omkar Curtis MD LAB URINE ORDERABLES Final Result Performing Organization Address City/[facility]/ZIP Co de Phone Number [facility] [address] [place] [address], [place] [phone] * Hemoglobin A1c (01/05/2025 2:36 PM EDT) [facility] Hemoglobin A1C 5.9 <6.5 % LAB CHEMISTRY METHOD 01/05/2025 9:16 PM EDT [facility] Mean Bld Glu Estim. 123 mg/dL LAB CHEMISTRY METHOD 01/05/2025 9:16 PM EDT [facility] Blood Venous blood specimen / Unknown Venipuncture / Unknown 01/05/2025 2:36 PM EDT 01/05/2025 2:36 PM EDT Omkar Curtis MD LAB BLOOD ORDERABLES Final Result [facility] [address] [place] [address], [place] [phone] * (ABNORMAL) Comprehensive metabolic panel (01/05/2025 2:36 PM EDT) Sodium 139 133 - 145 mmol/L LAB CHEMISTRY METHOD 01/05/2025 5:07 PM [facility] Potassium 4.2 3.5 - 5.5 mmol/L LAB CHEMISTRY METHOD 01/05/2025 5:07 PM [facility] Chloride 106 96 - 110 mmol/L LAB CHEMISTRY METHOD 01/05/2025 5:07 PM [facility] CO2 30 21 - 32 mmol/L LAB CHEMISTRY METHOD 01/05/2025 5:07 PM [facility] Anion Gap 3 3 - 11 LAB CHEMISTRY METHOD 01/05/2025 5:07 PM [facility] Glucose 121(H) 70 - 100 mg/dL LAB CHEMISTRY METHOD 01/05/2025 5:07 PM [facility] BUN 13 5 - 25 mg/dL LAB CHEMISTRY METHOD 01/05/2025 5:07 PM [facility] Creatinine 0.73 0.70 - 1.30 mg/dL LAB CHEMISTRY METHOD 01/05/2025 5:07 PM [facility] eGFR 106 >=60 mL/min/1. 73m2 LAB CHEMISTRY METHOD 01/05/2025 5:07 PM [facility] Comment:Calculation based on the Chronic Kidney Disease Epidemiology Collaboration (CKD-EPI) equation refit without adjustment for race. BUN/Creatinine Ratio 17.8 LAB CHEMISTRY METHOD 01/05/2025 5:07 PM [facility] Calcium 9.5 8.5 - 10.5 mg/dL LAB CHEMISTRY METHOD 01/05/2025 5:07 PM [facility] AST (SGOT) 19 10 - 42 unit/L LAB CHEMISTRY METHOD 01/05/2025 5:07 PM [facility] ALT (SGPT) 53 10 - 60 unit/L LAB CHEMISTRY METHOD 01/05/2025 5:07 PM [facility] Alkaline Phosphatase 71 42 - 121 unit/L LAB CHEMISTRY METHOD 01/05/2025 5:07 PM EDT [facility] Total Protein 7.3 6.0 - 8.0 g/dL LAB CHEMISTRY METHOD 01/05/2025 5:07 PM EDT [facility] Albumin 4.3 3.2 - 5.0 g/dL LAB CHEMISTRY METHOD 01/05/2025 5:07 PM EDT [facility] Total Bilirubin 0.6 0.0 - 1.4 mg/dL LAB CHEMISTRY METHOD 01/05/2025 5:07 PM EDT [facility] Blood Venous blood specimen / Unknown Venipuncture / Unknown 01/05/2025 2:36 PM EDT 01/05/2025 2:36 PM EDT Omkar Curtis MD LAB BLOOD ORDERABLES Final Result [facility] [address] [place] [address], from Last 3 Months or Most Recently Relevant to Health Maintenance Insurance [facility] [employer] Care Teams Creative Technologist Relationship Specialty Start Date End Date Omkar Curtis MD [address] [place] [address] JIGNESH Piedra [id number] [phone] (work) [facility] - General 08/29/22
--- OUTSIDE RECORDS SUMMARY | 2025-05-01 15:21 | XMS_ITS | Clinical Summary ---
Author Organization [facility] Address [address] [facility] [address] [place] [address] Phone Care Team Providers Care Mexican Food Cook Name Role Phone Zena Raines MD Primary Care Pro vider Encounters Date Type Department Care Team Description 04/09/2025 9:57 AM EDT - 04/09/2025 11:59 PM EDT Hospital Encounter [facility] [address] [place] [address] Edwige Rubio MD Discharge Disposition: Home or Self Care 04/08/2025 10:44 AM EDT - 04/08/2025 11:59 PM EDT Hospital Encounter [facility] [address] [place] [address] Edwige Rubio MD Discharge Disposition: Home or Self Care 03/27/2025 Orders Only [facility] [address] [place], [place] [address]81[address] [place] [address] Edwige Rubio MD Need for hepatitis B screening test (Primary Dx); Male infertility, unspecified 02/27/2025 12:34 PM EDT - 02/27/2025 11:59 PM EDT Hospital Encounter [facility] Phlebotomy [address] [place] [id number] Discharge Disposition: Home or Self Care from Last 3 Months Social History Tobacco Use Types Packs/Day Years Used Date Smoking Tobacco: Never Assessed Education Answer Date Recorded Are you interested in more education? Not on tai e 10/28/2022 Are you concerned about learning? Not on file 10/28/2022 No 10/28/2022 No 10/28/2022 Digital Access Answer Date Recorded No 11/26/2022 No 11/26/2022 No 11/26/2022 Reliable internet access at home? Not on file 11/26/2022 Device with a working camera? Not on file Sex and Gender Information Value Date Recorded Sex Assigned at Not on file Legal Sex Male 3:46 PM EDT Gender Identity Not on file Sexual Orientation Not on file Plan of Treatment Health Maintenance Due Date Last Done Comments LIPID PANEL 1967 DEPRESSION SCREENING 1979 SMOKING Hx and SMOKELESS TOBACCO SCREENING 1980 COLOGUARD 2012 COLONOSCOPY 2012 COLORECTAL CANCER SCREENING 2012 FIT TEST 2012 FOBT 2012 SIGMOIDOSCOPY 2012 VIRTUAL COLONOSCOPY 2012 PNEUMOCOCCAL VACCINES (50+ years) (1 of 1 - PCV) 2017 ZOSTER VACCINES (1 of 2) 2017 Adult Td,Tdap Booster 05/22/2022 05/22/2012 INFLUENZA VACCINE (#1) 2025 4, 03/02/2012 COVID-19 VACCINE (3 - 2024-2 6 season) 2025 09/08/2020, 08/17/2020 RSV VACCINE (1 - 1-dose 75+ series) 2042 HEPATITIS C SCREENING Completed 04/08/2025 , 2024 HIV ONE-TIME SCREENING (18-6 5 YEARS) Completed 04/08/2025 HEPATITIS A VACCINES Aged Out No long er eligible based on patient's age to complete this topic HIB VACCINES Aged Out No longer eligi ble based on patient's age to complete this topic MENINGOCOCCAL VACCINES (ACWY) Aged Out No longer eligible based on patient's age to complete this topic MENINGOCOCCAL VACCINES (B) Aged Out N o longer eligible based on patient's age to complete this topic Medical Devices Not on file Procedures Procedure Name Priority Date/Time Associated Diagnosis Comments SEMEN ANALYSIS Routine 04/09/2025 9:30 AM EDT Male infertility, unspecified SYPHILIS ANTIBODY SCREEN ASSAY Routine 04/08/2025 11:01 AM EDT Male infertility, unspecified HIV-1/2 ANTIGEN/ANTIBODY Routine 04/08/2025 11:01 AM EDT HEPATITIS C ANTIBODY, QUALITATIVE Routine 04/08/2025 11:01 AM EDT Male infertility, unspecified HEPATITIS B SURFACE ANTIGEN Routine 04/08/2025 11:01 AM EDT Need for hepatitis B screening test from Last 3 Months Results * (ABNORMAL) SEMEN ANALYSIS (04/09/2025 9:30 AM EDT) COLOR WHITE, ROMERO, OPALESCENT WHITE, ROMERO, OPALESCENT [facility] CLARITY CLOUDY [facility] SPERM AGGLUTINATION moderate: 10-50 spermatozoa per agglutinate, free spermatozoa [facility] SEMEN VISCOSITY INCREASED(A) NORMAL C [facility] SEMEN PH 8.5 [facility] SPERM CONCENTRATION 103.0 15.0 - 999.0 MILLION/ML [facility] SPERM MOTILITY 50 50 - 100 % [facility] SPERM MORPHOLOGY 8 ELECTRICIAN HELPER [employer] [facility] Comment:Normal reference int erval is greater than or equal to 4%. Morphology is based on WHO Manual for Examination and Processing of Human Semen, 5th edition, 2010. SEMEN CONTAINER PLASTIC [facility] DAYS OF ABSTINENCE 4 DAYS [facility] COLLECTION PROBLEMS None [facility] SEMEN VOLUME 1.7(L) 2 - 6 mL [facility] SEMEN TRANSPORT None [facility] Other (Semen) 04/09/2025 9:3 0 AM EDT 04/09/2025 10:09 AM EDT us Edwige Rubio MD BODY FLUIDS AND STOOLS ORDERA BLES Edited Result - Final [facility] [address] [place] [address] * HIV-1/2 antigen/antibody (04/08/2025 11:01 AM EDT) HIV-1/2 Antigen/Antibo dy NON-REACTI VE NON-REACTI VE [facility] 04/08/2025 11:0 1 AM EDT 04/08/2025 6:53 PM EDT us Edwige Rubio MD LAB BLOOD ORDERABLES Final Re sult Performing Organization Address [facility] Co de Phone Number [address] [phone] * Hepatitis C antibody, qualitative (04/08/2025 11:01 AM EDT) HCV NON-REACTIV E NON-REACTI VE [facility] Blood 04/08/2025 11:0 1 AM EDT 04/08/2025 11:08 AM EDT us Edwige Rubio MD LAB BLOOD ORDERABLES Final Re sult Performing Organization Address [facility] Co de Phone Number [address] [address] * Syphilis antibody screen (04/08/2025 11:01 AM EDT) RPR NON-REACTIV E NON-REACTI VE [facility] Blood 04/08/2025 11:0 1 AM EDT 04/08/2025 11:08 AM EDT us Edwige Rubio MD LAB BLOOD ORDERABLES Final Re sult Performing Organization Address [facility] Co de Phone Number [address] [address] * Hepatitis B surface antigen (04/08/2025 11:01 AM EDT) HBV SURFACE ANTIGEN NON-REACTI VE NON-REACTI VE [facility] Blood 04/08/2025 11:0 1 AM EDT 04/08/2025 11:08 AM EDT us Edwige Rubio MD LAB BLOOD ORDERABLES [facility] Organization Address City/State/ZIP Co de Phone Number [facility] [address] [place], [place] [phone] from Last 3 Months Insurance [employer] Member Subscriber Plan / Payer (Ef fective 2017-Present) Name:MaliharafyEugene guevarachay Relation to Subscriber:Self Name:Eugene Sweetchay Payer ID:[id number] Group ID:[id number] Type:Medicaid [address] POS EPO [employer] ACO [place] POS EPO [employer] Member Subscriber Plan / Payer (Ef fective 2017-Present) Name:Josué Sweetjose Relation to Subscriber:Self Name:Bryan Sweet Payer ID:[id number] Group ID:[id number] Type:Medicaid Address: [address] [place] [address] [address] ACO [facility] A[facility] [address] POS EPO [facility] [address] POS EPO [facility] [employer] Medical [facility] ACO [facility] POS EPO Care Teams Mexican Food Cook Relationship Specialty Start Date End Date Zena Raines MD [address] [place] [address] PCP - General Internal Medicine 04/28/21 Additional Source Comments The information contained in this document represents components of the legal health record. It is not the complete legal health record.[facility]
--- OUTSIDE RECORDS SUMMARY | 2025-05-01 15:21 | XMS_ITS | Encounter Summary ---
Author Organization [facility] Address [address] [place] [address] Phone Care Team Providers Care Open Source Developer Name Role Phone Zena Raines MD Primary Care Pro vider Encounter Details Date Type Department Care Team (Late st Contact Info) Description 06/22/2021 Telephone [facility] [address] [facility] [address] [place] [address] Euceda, Gina [address] [facility]. 5th [place] [address] Social History Tobacco Use Types Packs/Day Years Used Date Smoking Tobacco: Never Assessed Sex and Gender Information Value Date Recorded Sex Assigned at Not on file Legal Sex Male 3:46 PM EDT Gender Identity Not on file Sexual Orientation Not on file documented as of this encounter Plan of Treatment Not on file documented as of this encounter Visit Diagnoses Not on filedocumented in this encounter Care Teams Open Source Developer Relationship Specialty Start Date End Date Zena Raines MD [address] [place] [address] PCP - General Internal Medicine 04/28/21 documented as of this encounter Additional Source Comments The information contained in this document represents components of the legal health record. It is not the complete legal health record.[facility]
--- OUTSIDE RECORDS SUMMARY | 2025-05-01 15:21 | XMS_ITS | Encounter Summary ---
Author Organization [facility] Address [address] [place] [address] Care Team Providers Care Field Rep Name Role Phone Omkar Curtis MD Primary Care Provider [phone] Reason for Referral * Consultation (Routine) - Closed Specialty Diagnoses / Procedures Referred By Contjessica t Referred To Contact Urology Diagnoses Enlarged prostate with urinary obstruction Omkar Curtis MD [address] [place], [place] Phone: tel: fax: Chi Gregg MD [address] [place] [address] [place] [address] Phone: tel: fax: Referral ID Status Reason Start Date Expiration Date V isits Requested Visits Authorized [id number] Closed Specialty Services Required 04/22/2025 04/22/2026 6 6 Reason for Visit * Reason Onset Date Comments Referral 04/22/2025 Encounter Details Date Type Department Care Team (Late st Contact Info) Description 04/22/[address] [facility] [address] [place] [phone] Gaby Richmond [place] Social History Tobacco Use Types Packs/Day Years Used Date Smoking Tobacco: Never Smokeless Tobacco: Never Alcohol Use Standard Drinks/Week Comments No 0 [...] care for your loved ones. For example, child protective services specialist or elderly care for an older adult? [...] on file documented as of this encounter Progress Notes * Gaby [place] - 04/22/2025 1:28 PM EDT Referral requested for [facility]. It appears as though the pt has their appt already scheduled with [facility] on 05/01/25 Please see the document attached to this encounter for referral information. documented in this encounter Plan of Treatment Upcoming Encounters Date Type Department Care Team (Late st Contact Info) Description 05/26/2025 10:00 AM EST Office Visit Adult Medicine [facility] [address] [place] [address] Omkar Curtis MD [address] [place] [address] Scheduled Referrals Name Type Priority Associated Diagnoses Order Schedule Ambulatory referral to Urology Outpatient Referral Routine Enlarged prostate with urinary obstruction 1 Occurrences starting 04/22/2025 until 04/22/2026 documented as of this encounter Visit Diagnoses Diagnosis Enlarged prostate with urinary obstruction- Primary Hypertrophy of prostate with urinary obstruction and other lower urinary tract symptoms (LUTS) documented in this encounter Additional Health Concerns Assessment Noted Time PHQ-9 Depression Total Score: 0 07/22/19 25 2:16 PM EST documented as of this encounter Care Teams Field Rep Relationship Specialty Start Date End Date Omkar Curtis MD [address] [place] [address] PCP - General 08/29/22 documented as of this encounter
--- OUTSIDE RECORDS SUMMARY | 2025-05-01 15:21 | XMS_ITS | Clinical Summary ---
Author Organization [employer] Address [address] [facility] 7t [place] [address] Care Team Providers Care Drug And Alcohol Counselor Name Role Phone Unavailable Primary Care Provider Unavailabl e Allergies No known active allergies Medications No known medications Social History Tobacco Use Types Packs/Day Years Used Date Smoking Tobacco: Never Passive Smoke Exposure: Never Smokeless Tobacco: Never Sex and Gender Information Value Date Recorded Sex Assigned at Male 05/01/2022 10:40 AM EDT Legal Sex Male 10:40 AM EDT Gender Identity Male 05/01/2022 10:40 AM EDT Sexual Orientation Straight 05/01/2022 10 :40 AM EDT Last Filed Vital Signs Vital Sign Reading Time Taken Comments Blood Pressure 118/78 01/25/2023 3:06 PM EDT Pulse 74 01/25/2023 3:06 PM EDT Temperature - - Respiratory Rate - - Oxygen Saturation - - Inhaled Oxygen Concentration - - Weight - - Height - - Body Mass Index - - Plan of Treatment Health Maintenance Due Date Last Done Comments CT Colonography 1967 Colonoscopy 1967 Colorectal Cancer Screening 1967 Dental Oral Exam 1967 Dental Prophylaxis 1967 Depression Screening 1967 FIT DNA/Cologuard 1967 FIT 1967 FOBT 1967 HIV Screening 1967 Lipid Panel 1967 SDOH Screening 1967 Sigmoidoscopy 1967 Disability Screening 1967 Alcohol/Substance Use Screening 1979 Hepatitis C Screening 1985 Hepatitis B Vaccines (1 of 3 - 19+ 3-dose series) 1986 Pneumococcal Vaccine: 50+ Years (1 of 1 - PCV) 2017 Zoster Vaccines (1 of 2) 2017 DTaP/Tdap/Td Vaccines (2 - T d or Tdap) 05/22/2022 05/22/2012 Tobacco Screening 01/26/2024 01/25/2023 Dental X-Ray: Bitewings 01/27/2024 01/25/2023 COVID-19 Vaccine (3 2024-2 6 season) 2025 09/08/2020, 08/17/2020 Influenza Vaccine (#1) 2025 4, 03/02/2012 Dental X-Ray: Full Mouth 01/26/2026 01/25/2023 RSV Patients and Patients Aged 60 years or older (1 - 1-dose 75+ series) 2042 HIB Vaccines Aged Out No longer eligi [...] patient's age to complete this topic Meningococcal Vaccine Aged Out No barrington rossana eligible based on patient's age to complete this topic RSV under 20 months Aged Out No longe r eligible based on patient's age to complete this topic Rotavirus Vaccines Aged Out No longer eligible based on patient's age to complete this topic Procedures Procedure Name Priority Date/Time Associated Diagnosis Comments INTRAORAL - COMPLETE SERIES OF RADIOGRAPHIC IMAGES Routine 01/25/2023 3:00 PM EDT from Last 3 Months or Most Recently Relevant to Health Maintenance Insurance [facility] MEDICAID STAND ADULT
== END 2025-05-01 15:26 | disposition home or self-care (01) ==
LOC: HO.HUSH 14:58
PROVIDERS: PCP Internal Medicine; Visit Provider Urology
DX: N20.0 Calculus of kidney (principal); N40.1 Benign prostatic hyperplasia with lower urinary tract symptoms; N13.8 Other obstructive and reflux uropathy
CPT/HCPCS: 99214

== ENCOUNTER → 2025-05-20 05:53 | Outpatient (BNV) | payer OTHER, SELFPAY | PROVIDERS: PCP Internal Medicine; Visit Provider Radiology Diagnostic Radiology | DX: N20.0 Calculus of kidney (principal) | CPT/HCPCS: 74018 ==

== ENCOUNTER 2025-05-20 08:24 | Day surgery (SDC) | payer OTHER, SELFPAY ==
--- OUTSIDE RECORDS SUMMARY | 2025-05-05 15:30 | XMS_ITS | Encounter Summary ---
Author Organization [facility] Address [address] [place] [address] Care Team Providers Care Furniture Repair Technician Name Role Phone Omkar Curtis MD Primary Care Provider Encounter Details Date Type Department Care Team ([facility] st Contact Info) Description 05/05/2025 3:30 PM EST Lab Draw Station [address] [address] Type 2 diabetes mellitus without complication, without long-term current use of insulin (CMS/HCC V24, CMS/HCC V28) Social History Tobacco Use Types Packs/Day Years [...] care for your loved ones. For example, housekeeper child care or elderly care for an older adult? [...] as of this encounter Plan of Treatment Upcoming Encounters Date Type Department Care Team (Late st Contact Info) Description 05/26/2025 10:00 AM EST Office Visit Adult Medicine [facility] [address] [place] [address] Omkar Curtis MD [address] [place] [address] Pending Results Name Type Priority Associated Diagnoses Date /Time Microalbumin creatinine urine ratio Lab Routine Type 2 diabetes mellitus without complication, without long-term current use of insulin ([facility] V24, [facility] V28) 05/05/2025 3:35 PM EST Lipid panel with reflex to direct LDL Lab Routine Type 2 diabetes mellitus without complication, without long-term current use of insulin (CMS/[facility] V24, CMS/[facility] V28) 05/05/2025 3:35 PM EST Comprehensive metabolic panel Lab Routine Type 2 diabetes mellitus without complication, without long-term current use of insulin ([facility] V24, [facility] V28) 05/05/2025 3:35 PM EST Hemoglobin A1c Lab Routine Type 2 diabetes mellitus without complication, without long-term current use of insulin ([facility] V24, [facility] V28) 05/05/2025 3:35 PM EST documented as of this encounter Visit Diagnoses Diagnosis Type 2 diabetes mellitus without complication, without long-term current use of insulin ([facility] V24, [facility] V28) documented in this encounter Additional Health Concerns Assessment Noted Time PHQ-9 Depression Total Score: 0 07/22/19 25 2:16 PM EST documented as of this encounter Care Teams Furniture Repair Technician Relationship Specialty Start Date End Date Omkar Curtis MD [address] [place] [address] PCP - General 08/29/22 documented as of this encounter
--- OUTSIDE RECORDS SUMMARY | 2025-05-05 17:57 | XMS_ITS | Clinical Summary ---
Author Organization [employer] Address [address] [facility] 7t [place] [address] Care Team Providers Care Marketing Support Coordinator Name Role Phone Unavailable Primary Care Provider [...] Most Recently Relevant to Health Maintenance Insurance [facility] MEDICAID STAND ADULT
--- OUTSIDE RECORDS SUMMARY | 2025-05-05 17:57 | XMS_ITS | Encounter Summary ---
Author Organization [facility] Address [address] [place] [address] Care Team Providers Care Petroleum Refining Firer Name Role Phone Omkar Curtis MD Primary Care Provider [phone] Reason for Referral * Consultation (Routine) - Closed Specialty Diagnoses / Procedures Referred By Contjessica t Referred To Contact Urology Diagnoses Enlarged prostate with urinary obstruction Omkar Curtis MD [address] [place], [place] Phone: tel: fax: Chi Gregg MD [address] [place] [address] [place] [address] Phone: tel: fax: Referral ID Status Reason Start Date Expiration Date V isits Requested Visits Authorized [id number] Closed Specialty Services Required 04/22/2025 04/22/2026 6 6 Reason for Visit * Reason Onset Date Comments Referral 04/22/2025 Encounter Details Date Type Department Care Team (Late st Contact Info) Description 04/22/2025 Telephone Adult Medicine [facility] [address] [place] [phone] Gaby Richmond [place] Social History Tobacco Use [...] care for your loved ones. For example, summer child caregiver or elderly care for an older adult? [...] 04/22/2025 1:28 PM EDT Referral requested for [facility]. It appears as though the pt has their appt already scheduled with [facility] on 05/01/25 Please see the document attached to this encounter for referral information. documented in this encounter Plan of Treatment Upcoming Encounters Date Type Department Care Team (Late st Contact Info) Description 05/26/2025 10:00 AM EST Office Visit Adult Medicine [facility] [address] [place] [address] Omkar Curtis MD [address] [place] [address] Scheduled Referrals Name Type Priority Associated Diagnoses [...] documented as of this encounter Care Teams Petroleum Refining Firer Relationship Specialty Start Date End Date Omkar Curtis MD [address] [place] [address] PCP - General 08/29/22 documented as of this encounter
--- OUTSIDE RECORDS SUMMARY | 2025-05-05 17:57 | XMS_ITS | Clinical Summary ---
Author Organization [facility] Address [address] [facility] [address] [place] [address] Phone Care Team Providers Care Industrial Relations Analyst Name Role Phone Zena Raines MD Primary Care Pro vider Encounters Date Type Department Care Team Description 04/09/2025 9:57 AM EDT - 04/09/2025 11:59 PM EDT Hospital Encounter [facility] Specimen Processing [address] [place] [address] Edwige Rubio MD Discharge Disposition: Home or Self Care 04/08/2025 10:44 AM EDT - 04/08/2025 11:59 PM EDT Hospital Encounter [facility] Phleb Conception [address] [place] [address] Edwige Rubio MD Discharge Disposition: Home or Self Care 03/27/2025 Orders Only [facility] [address] [facility] [place] [address] Edwige Rubio MD Need for hepatitis B screening test (Primary Dx); Male infertility, unspecified 02/27/2025 12:34 PM EDT - 02/27/2025 11:59 PM EDT Hospital Encounter [facility] Phlebotomy [address] [place] [id number] Discharge Disposition: Home or Self Care from [...] COLOR WHITE, ROMERO, OPALESCENT WHITE, ROMERO, OPALESCENT [facility] CLARITY CLOUDY [facility] SPERM AGGLUTINATION moderate: 10-50 spermatozoa per agglutinate, free spermatozoa [facility] SEMEN VISCOSITY INCREASED(A) NORMAL [facility] SEM[facility] PH 8.5 [facility] SPERM CONCENTRATION 103.0 15.0 - 999.0 MILLION/ML [facility] SPERM MOTILITY 50 50 - 100 % [facility] SPERM MORPHOLOGY 8 FACILITY MANAGER [facility] Comment:Normal reference int erval is greater than or equal to 4%. Morphology is based on WHO Manual for Examination and Processing of Human Semen, 5th edition, 2010. SEMEN CONTAINER PLASTIC [facility] DAYS OF ABSTINENCE 4 DAYS [facility] COLLECTION PROBLEMS None [facility] SEMEN VOLUME 1.7(L) 2 - 6 mL [facility] SEMEN TRANSPORT None [facility] Other (Semen) 04/09/2025 9:3 0 AM EDT 04/09/2025 10:09 AM EDT us Edwige Rubio MD BODY FLUIDS AND STOOLS ORDERA BLES Edited Result - Final [facility] [address] [place] [address] * HIV-1/2 antigen/antibody (04/08/2025 11:01 AM EDT) HIV-1/2 Antigen/Antibo dy NON-REACTI VE NON-REACTI VE [facility] 04/08/2025 11:0 1 AM EDT 04/08/2025 6:53 PM EDT us Edwige Rubio MD LAB BLOOD BKR ORDERABLES Karen l Result Performing Organization Address City/[facility]/ZIP Co de Phone Number [address] [address] * Hepatitis C antibody, qualitative (04/08/2025 11:01 AM EDT) HCV NON-REACTIV E NON-REACTI VE [facility] Blood 04/08/2025 11:0 1 AM EDT 04/08/2025 11:08 AM EDT us Edwige Rubio MD LAB BLOOD BKR ORDERABLES Karen l Result Performing Organization Address City/[facility]/ZIP Co de Phone Number [address] [address] * Syphilis antibody screen (04/08/2025 11:01 AM EDT) RPR NON-REACTIV E NON-REACTI VE [facility] Blood 04/08/2025 11:0 1 AM EDT 04/08/2025 11:08 AM EDT us Edwige Rubio MD LAB BLOOD BKR ORDERABLES Karen l Result [address] [address] * Hepatitis B surface antigen (04/08/2025 11:01 AM EDT) HBV SURFACE ANTIGEN NON-REACTI VE NON-REACTI VE [facility] Blood 04/08/2025 11:0 1 AM EDT 04/08/2025 11:08 AM EDT us Edwige Rubio MD LAB BLOOD BKR ORDERABLES Karen l Result [address] [address] from Last 3 Months Insurance [employer] Member Subscriber Plan / Payer (Ef fective 2017-Present) Name:Bryan Sweet Relation to Subscriber:Self Name:Bryan Sweet Payer ID:[id number] Group ID:[id number] Type:Medicaid Address: [place] [id number] POS EPO [employer] A[employer] [address] [place] [address] [address] [facility] [place] [place] [address] [facility] [address] [place], [place] [address]Heart [facility] Member Subscriber Plan / Payer (Ef fective 2017-Present) Name:Bryan Sweet Relation to Subscriber:Self Name:Bryan Sweet Payer ID:[id number] Group ID:[id number] Type:Medicaid Address: [address] [place], [place] [address] [address] [address] POS EPO [facility] Tebla [employer] ACO O POS EPO [email or web address] ACO [facility] POS EPO Care Teams Industrial Relations Analyst Relationship Specialty Start Date End Date Zena Raines MD [address] [place] [address] PCP - General Internal Medicine 04/28/21 Additional Source Comments The information contained in this document represents components of the legal health record. It is not the complete legal health record.[facility]
--- OUTSIDE RECORDS SUMMARY | 2025-05-05 17:57 | XMS_ITS | Encounter Summary ---
Author Organization [facility] Address [address] [place] [address] Phone Care Team Providers Care Disease Management Nurse Name Role Phone Zena Raines MD Primary Care Pro vider Encounter Details Date Type Department Care Team (Late st Contact Info) Description 06/22/2021 Telephone [facility] Specialties [address] [facility] [address] [place] [address] Euceda, Gina [address] [facility]. 5th [place] [address] Social History Tobacco Use Types Packs/Day Years [...] on filedocumented in this encounter Care Teams Disease Management Nurse Relationship Specialty Start Date End Date Zena Raines MD [address] [place] [address] PCP - General Internal Medicine 04/28/21 documented as of this encounter Additional Source Comments The information contained in this document represents components of the legal health record. It is not the complete legal health record.[facility]
--- OUTSIDE RECORDS SUMMARY | 2025-05-05 17:57 | XMS_ITS | Clinical Summary ---
Author Organization [facility] [address] [place] [address] [place] [phone] Phone Care Team Providers Care Funeral Sales Manager Name Role Phone Omkar Curtis MD Primary [...] complication, without long-term current use of insulin ([facility] V24, [facility] V28) 08/17/2021 Assessment & Plan (07/22/2024 5:02 [...] Encounters Date Type Department Care Team Description 05/05/2025 3:30 PM EST Lab Draw Station - [address] Type 2 diabetes mellitus without complication, without long-term current use of insulin ([facility] V24, [facility] V28) 04/22/2025 Telephone Adult Medicine [place] - [address] [phone] Gaby Richmond [place] from Last 3 Months [...] complication, without long-term current use of insulin ([facility] V24, [facility] V28) 08/17/2021 DX:Controlled type 2 diabete s mellitus without complication, without long-term current use of insulin ([facility]) Family History Medical History Relation Name Comments [...] for your loved ones. For example, child care center assistant director or elderly care for an older adult? [...] 10:00 AM EST Office Visit Adult Medicine [facility] [address] [place] [address] Omkar Curtis MD [address] [place] [address] Health Maintenance Due Date Last Done Comments [...] Screening Completed 07/22/2024 Hepatitis C Screening Completed 04/08/2025, 025 HIB Vaccines Aged Out No longer eligi [...] complication, without long-term current use of insulin ([facility] V24, [facility] V28) COMPREHENSIVE METABOLIC PANEL Routine 01/05/2025 2:36 PM EDT Type 2 diabetes mellitus without complication, without long-term current use of insulin ([facility] V24, [facility] V28) HEMOGLOBIN A1C Routine 01/05/2025 2:36 PM EDT Type 2 diabetes mellitus without complication, without long-term current use of insulin ([facility] V24, [facility] V28) LIPID PANEL WITH REFLEX TO DIRECT LDL Routine 01/05/2025 2:36 PM EDT Pure hypercholesterolemia from Last 3 Months or Most Recently Relevant to Health Maintenance Results * (ABNORMAL) Lipid panel with reflex to direct LDL (01/05/2025 2:36 PM EDT) Cholesterol 169 0 - 200 mg/dL LAB CHEMISTRY METHOD 01/05/2025 5:07 PM EDT [facility] Triglycerides 68 0 - 150 mg/dL LAB CHEMISTRY METHOD [facility] HDL 53 >=40 mg/dL LAB CHEMISTRY METHOD 01/05/2025 5:07 PM [facility] LDL Calculated 102(H) 0 - 100 mg/dL LAB CHEMISTRY METHOD 01/05/2025 5:07 PM [facility] VLDL Cholesterol Tony 13.6 mg/dL LAB CHEMISTRY METHOD 01/05/2025 5:07 PM [facility] Non HDL Chol. (LDL+VLDL) 116 <145 mg/dL LAB CHEMISTRY METHOD 01/05/2025 5:[facility] Chol/HDL Ratio 3.2 0.0 - 4.4 LAB CHEMISTRY METHOD 01/05/2025 5:07 PM [facility] Blood Venous blood specimen / Unknown Venipuncture / Unknown 01/05/2025 2:36 PM EDT 01/05/2025 2:36 PM EDT us Omkar Curtis MD LAB BLOOD ORDERABLES Final Result Performing Organization Address [facility] de Phone Number [facility] [address] [place] [address], [place] [phone] * Microalbumin creatinine urine ratio (01/05/2025 2:36 PM EDT) Creatinine, Urine 291.0 mg/dL LAB CHEMISTRY METHOD 01/05/2025 5:36 PM EDT [facility] Microalb, Ur 25.3 0.0 - 29.0 mg/L LAB CHEMISTRY METHOD 01/05/2025 5:36 PM EDT [facility] Microalb/Creat Ratio 9 <30 mg/g creat LAB CHEMISTRY METHOD 01/05/2025 5:36 PM EDT [facility] Urine Urine specimen obtained by clean catch procedure / Unknown Non-blood Collection / Unknown 01/05/2025 2:36 PM EDT 01/05/2025 2:36 PM EDT Omkar Curtis MD LAB URINE ORDERABLES Final Result Performing Organization Address [facility] de Phone Number [facility] [address] [place] [address], [place] [phone] * Hemoglobin A1c (01/05/2025 2:36 PM EDT) Hemoglobin A1C 5.9 <6.5 % LAB CHEMISTRY METHOD 01/05/2025 9:16 PM EDT [facility] Mean Bld Glu Estim. 123 mg/dL LAB CHEMISTRY METHOD 01/05/2025 9:16 PM EDT [facility] Blood Venous blood specimen / Unknown Venipuncture / Unknown 01/05/2025 2:36 PM EDT 01/05/2025 2:36 PM EDT Omkar Curtis MD LAB BLOOD ORDERABLES Final Result Performing Organization Address [facility]/ZIP Co de Phone Number [facility] [address] [place] [address], * (ABNORMAL) Comprehensive metabolic panel (01/05/2025 2:36 PM EDT) Sodium 139 133 - 145 mmol/L LAB CHEMISTRY METHOD [facility]/05[facility]2025 5:[facility] Potassium 4.2 3.5 - 5.5 mmol/L LAB CHEMISTRY METHOD 01/05/2025 5:07 PM [facility] Chloride 106 96 - 110 mmol/L LAB CHEMISTRY METHOD 01/05/2025 5:07 PM [facility] CO2 30 21 - 32 mmol/L LAB CHEMISTRY METHOD 01/05/2025 5:07 PM [facility] Anion Gap 3 3 - 11 LAB CHEMISTRY METHOD 01/05/2025 5:07 PM [facility] Glucose 121(H) 70 - 100 mg/dL LAB CHEMISTRY METHOD 01/05/2025 5:07 PM [facility] BUN 13 5 - 25 mg/dL LAB CHEMISTRY METHOD 01/05/2025 5:07 PM [facility] Creatinine 0.73 0.70 - 1.30 mg/dL LAB CHEMISTRY METHOD 01/05/2025 5:07 PM [facility] eGFR 106 >=60 mL/min/1. 73m2 LAB CHEMISTRY METHOD 01/05/2025 5:07 PM [facility] Comment:Calculation based on the Chronic Kidney Disease Epidemiology Collaboration (CKD-EPI) equation refit without adjustment for race. BUN/Creatinine Ratio 17.8 LAB CHEMISTRY METHOD 01/05/2025 5:07 PM [facility] Calcium 9.5 8.5 - 10.5 mg/dL LAB CHEMISTRY METHOD 01/05/2025 5:07 PM [facility] AST (SGOT) 19 10 - 42 unit/L LAB CHEMISTRY METHOD 01/05/2025 5:07 PM EDT [facility] ALT (SGPT) 53 10 - 60 unit/L LAB CHEMISTRY METHOD 01/05/2025 5:07 PM EDT [facility] Alkaline Phosphatase 71 42 - 121 unit/L LAB CHEMISTRY METHOD 01/05/2025 5:07 PM EDT [facility] Total Protein 7.3 6.0 - 8.0 g/dL LAB CHEMISTRY METHOD 01/05/2025 5:07 PM EDT [facility] Albumin 4.3 3.2 - 5.0 g/dL LAB CHEMISTRY METHOD 01/05/2025 5:07 PM EDT [facility] Total Bilirubin 0.6 0.0 - 1.4 mg/dL LAB CHEMISTRY METHOD 01/05/2025 5:07 PM EDT [facility] Blood Venous blood specimen / Unknown Venipuncture / Unknown 01/05/2025 2:36 PM EDT 01/05/2025 2:36 PM EDT Omkar Curtis MD LAB BLOOD ORDERABLES Final Result [facility] [address] [place] [address], from Last 3 Months or Most Recently Relevant to Health Maintenance Insurance [facility] Care Teams Funeral Sales Manager Relationship Specialty Start Date End Date Omkar Curtis MD [address] [place] [address] PCP - General 08/29/22
--- OUTSIDE RECORDS SUMMARY | 2025-05-05 17:57 | XMS_ITS ---
Author Name [facility] Organization Unknown Care Team Organization Name Specialty Phone Email Start Date End Da te [facility] СЕРГЕЙ ZUNIGA Primary Care [email or web address] 01/04/2023 4 [facility] MARIOLA CHAN Primary Care 05/09/2022 4
[2025-05-18 11:48] VITALS: BMI 23.2
--- NOTE | ~2025-05-20 | XR_ITS ---
EXAMINATION: XR ABDOMEN KUB CLINICAL INDICATION: left kidney stone COMPARISON: Previous renal ultrasound most recent April [address] of the abdomen and pelvis August 2020 TECHNIQUE: AP view of the abdomen. FINDINGS: 2 x 4 mm density projects over the lower pole of the left kidney questionable for a stone.. No right renal stone. Normal bowel gas pattern. Mild degenerative changes of the lower lumbar spine. XR/XR KUB IMPRESSION: Question small 2 x 4 mm left lower pole renal stone. Electronically signed by: Stephenie Alcantar MD 05/20/2025 09:20 AM NANCY
[2025-05-20 09:24] VITALS: BMI 24.3
[2025-05-20 09:25] VITALS: BP 119/77; PULSE 76; RESP 16; TEMP 36.2; O2SAT 96
[2025-05-20 09:39] LABS: Glucose, Whole Blood 190 mg/dL (60-115)
[2025-05-20] MEDS: Lactated Ringers 1,000 ML 999 ML IV (09:40)
--- NOTE | 2025-05-20 09:40 | HO.ANESPROP2 ---
Documented by User: Lauren Iraheta NP 05/18/25 09:48 HPI - Anesthesia Eval Consult details Narrative: 59 yr old male for left Lithotripsy [facility] Active Problems Active Problems: All Active Problems (Updated 07/04/22 @ 16:13 by Chi Gregg MD) Nocturia more than twice per night (Acute) BPH w urinary obs/LUTS (Acute) Nephrolithiasis (Acute) Past Medical History Medical History (Updated 05/18/25 @ 11:47 by Andreina Garsia RN) Controlled type 2 diabetes mellitus Hyperlipidemia Bilateral hearing loss Erectile dysfunction BPH (benign prostatic hyperplasia) Ureteral stone with hydronephrosis Surgical History Surgical History (Updated 05/20/25 @ 09:20 by Deborah Woodward RN) History of back surgery Social History Social History (Updated 05/18/25 @ 11:48 by Andreina Garsia RN) Alcohol intake: never Patient Tobacco Use Status: Never used Tobacco Use of substances other than those prescribed or required for medical reasons: No Are you DNR?: No Advance Directives: No Advance Directives Information Provided: Yes Meds Allergies Allergy/AdvReac Type Severity Reaction Status Date / Time No Known Allergies Allergy Verified 05/01/25 15:22 Home Medications ?Medication ?Instructions ?Recorded ?Confirmed ?Last Taken ?Type cholecalciferol (vitamin D3) 50 50 mcg PO DAILY 05/18/25 05/18/25 Unknown History mcg (2,000 unit) tablet fluticasone propionate 50 2 spray intranasal DAILY 05/18/25 05/18/25 Unknown History mcg/actuation nasal spray,suspension metformin 500 mg tablet 500 mg PO QAM 05/18/25 05/18/25 Unknown History pyridoxine (vitamin B6) 50 mg 50 mg PO DAILY 05/18/25 05/18/25 Unknown History tablet sildenafil 50 mg tablet 50 mg PO NEEDED intercourse 05/18/25 05/18/25 Unknown History Documented by User: Sarai Denson DO 05/20/25 09:53 PMF Past Medical History Medical History (Updated 05/18/25 @ 11:47 by Andreina Garsia RN) Controlled type 2 diabetes mellitus Hyperlipidemia Bilateral hearing loss Erectile dysfunction BPH (benign prostatic hyperplasia) Ureteral stone with hydronephrosis Family History Family history of problems with anesthesia: No Surgical History Surgical History (Updated 05/20/25 @ 09:20 by Deborah Woodward RN) History of back surgery History of Problems with Anesthesia: No Social History Social History (Updated 05/18/25 @ 11:48 by Andreina Garsia RN) Alcohol intake: never Patient Tobacco Use Status: Never used Tobacco Use of substances other than those prescribed or required for medical reasons: No Are you DNR?: No Advance Directives: No Advance Directives Information Provided: Yes Meds Allergies Allergy/AdvReac Type Severity Reaction Status Date / Time No Known Allergies Allergy Verified 05/01/25 15:22 Home Medications ?Medication ?Instructions ?Recorded ?Confirmed ?Last Taken ?Type cholecalciferol (vitamin D3) 50 50 mcg PO DAILY 05/18/25 05/18/25 Unknown History mcg (2,000 unit) tablet fluticasone propionate 50 2 spray intranasal DAILY 05/18/25 05/18/25 Unknown History mcg/actuation nasal spray,suspension metformin 500 mg tablet 500 mg PO QAM 05/18/25 05/18/25 Unknown History pyridoxine (vitamin B6) 50 mg 50 mg PO DAILY 05/18/25 05/18/25 Unknown History tablet sildenafil 50 mg tablet 50 mg PO NEEDED intercourse 05/18/25 05/18/25 Unknown History Exam Exam Date and Time: 05/20/25 0940 Height,Weight and Vital Signs: Height 5 ft 9 in Weight 74.7 kg Vital Signs Temperature 97.1 F 05/20/25 09:25 Pulse Rate 76 05/20/25 09:25 Respiratory Rate 16 05/20/25 09:25 Blood Pressure 119/77 05/20/25 09:25 Pulse Oximetry 96 05/20/25 09:25 Oxygen Delivery Method Room Air 05/20/25 09:25 Temperature 97.1 F 05/20/25 09:25 Pulse Rate 76 05/20/25 09:25 Respiratory Rate 16 05/20/25 09:25 Blood Pressure 119/77 05/20/25 09:25 Pulse Oximetry 96 05/20/25 09:25 Oxygen Delivery Method Room Air 05/20/25 09:25 Airway Mallampati Class: II TM Dist: >3cm Neck ROM: Full Loose/Missing/Broken Teeth: No (patient denies any loose or broken teeth) Heart: S1S2 Lungs: CTAB Assessment and Plan Assessment Anesthesia Assessment: Anesthesia Plan Discussed and Chart Reviewed Final Anesthetic Review Family History of Problems with Anesthesia: No History of Problems with Anesthesia: No NPO: Yes ASA Class: II Final Preanesthetic Review: No Changes in Pt Med Stat, Meds/Allgs Chart Reviewed, Consent Obtained/Reviewed and Anes Risks/Benef Reviewed Patient Risk: Low Procedure Risk: Low Anesthetic Plan Anesthetic Plan: MAC: and Agree w/ Assess. and Plan Disposition: Standard PACU
--- NOTE | 2025-05-20 09:43 | MHC.SHP ---
Pre-Procedural Eval Section A - 24 Hr Update-Section A only Date of Service: 05/20/25 The patient is an INPATIENT: No Changes since office visit: No Cold of Flu in the past 2 weeks, No New Medical Problems, No Changes in Medication and No Patient answered all questions The patient has been examined within 24 hours of the surgical procedure. The History & Physical has been completed within 30 days and I have reviewed it.: Yes Section B - Complete if H&P > 30 days Chief Complaint: Calculus of kidney Details of Present Illness: left 5mm lower pole Allergies: Allergies Allergy/AdvReac Type Severity Reaction Status Date / Time No Known Allergies Allergy Verified 05/01/25 15:22 Plan I have reviewed the history and physical and performed a pertinent physical examination on my patient. No changes have occurred unless specified. Time Spent With Patient Time: Total time managing care of this patient today ____ minutes.
--- NOTE | 2025-05-20 10:12 | W.PM.OPN ---
Operative Note Operative Note Date of Service: 05/20/25 Narrative: PreOperative Diagnosis: left Renal stones Post Operative Diagnosis: left Renal stones Procedure: left ESWL Surgeon: Dr Chi Gregg Anesthesia: mac/sedation Indications for procedure: The patient understands ESWL may be a staged procedure and subsequent intervention may be required based on imaging after ESWL. Quoted stone clearance rates for a solitary procedure are in the 70-80% range based primarily on stone location. They also understand there is a risk of bleeding to the kidney, infection, damage to adjacent organs, and stone migration following the procedure. - Imaging left 5mm lower pole Procedure optimization has been performed with IV acetaminophen given in the holding area and 1 L of lactated Ringer's to be given in order to optimize the fluid-stone interface. 20 mg of IV Lasix will be given in the last 5 minutes of the procedure to optimize stone clearance. Procedure: After informed consent was verified the patient was brought to the operating room and placed in a supine position. Anesthesia was performed per protocol. Safety pause time-out was performed. Imaging was displayed in the room and laterality confirmed. ESWL was performed. The 1st 500 shocks were performed at 60 hertz. These were performed with increasing power. Once maximum power was reached the rate was increased to 180 hertz. A total of 2500 shocks were given. Targeted imaging with ultrasound/fluoroscopy showed stone smudging suggestive of disintegration. The patient tolerated the procedure well and was transferred to the recovery area upon completion. Post procedure imaging will be organized. There was no evidence for flank discoloration.
[2025-05-20 10:17] VITALS: BP 107/73; PULSE 76; RESP 14; TEMP 36.4; O2SAT 94
[2025-05-20 10:20] VITALS: BP 100/60; PULSE 84; RESP 14; O2SAT 92
[2025-05-20 10:25] VITALS: BP 104/73; PULSE 71; RESP 14; O2SAT 93
[2025-05-20 10:30] VITALS: BP 114/66; PULSE 73; RESP 14; O2SAT 93
[2025-05-20 10:45] VITALS: BP 109/76; PULSE 67; RESP 14; TEMP 36.4; O2SAT 94
== END 2025-05-20 11:25 | disposition home or self-care (01) ==
PROVIDERS: PCP Internal Medicine; Visit Provider Urology
PROC: (CPT 50590; principal; 2025-05-20 10:30)
DX: N20.0 Calculus of kidney (principal); N40.1 Benign prostatic hyperplasia with lower urinary tract symptoms; N13.8 Other obstructive and reflux uropathy; N52.9 Male erectile dysfunction, unspecified; E11.9 Type 2 diabetes mellitus without complications; E78.5 Hyperlipidemia, unspecified; Z79.84 Long term (current) use of oral hypoglycemic drugs; Z79.899 Other long term (current) drug therapy
CPT/HCPCS: 50590; 74018; 82947; J0131; J2003; J2250; J2704; J3010

== ENCOUNTER → 2025-05-20 08:24 | Outpatient (BNV) | payer OTHER, SELFPAY | PROVIDERS: PCP Internal Medicine; Visit Provider Urology | DX: N20.0 Calculus of kidney (principal) | CPT/HCPCS: 50590 ==